=== PATIENT | female | born 1990 | race Caucasian/White ===

== ENCOUNTER 2018-06-21 19:01 | Emergency (ER) | payer BC, MEDICAID ==
[2018-06-21] MEDS: Bacitracin Oint 1 GM U/D Packet TOP ONE (19:23)
[2018-06-21] MEDS: Diphtheria,Pertussis(Acell),Tetanus Vaccine 0.5 ML SDV IM ONE (19:47)
--- NOTE | 2018-06-21 19:52 | EDM.PDOC ---
ED HPI GENERAL MEDICAL PROBLEM - General Chief Complaint: Laceration Stated Complaint: LACERATION ON LEFT THUMB Time Seen by Provider: 06/21/18 19:10 Source of Information: Reports: Patient, Family History Limitations: Reports: No Limitations - History of Present Illness INITIAL COMMENTS - FREE TEXT/NARRATIVE: 28-year-old female with a laceration on the dorsal aspect of her left thumb. 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 She has a transverse laceration over the MP joint of the thumb. She has an inability to extend the thumb. Onset: Sudden Duration: Hour(s): (Within the last hour) Location: Reports: Upper Extremity, Left Associated Symptoms: Reports: No Other Symptoms Left Finger-Thumb Pain Score (Numeric/FACES): 8 - Related Data Allergies Allergy/AdvReac Type Severity Reaction Status Date / Time Sulfa (Sulfonamide Allergy Cannot Verified 06/21/18 19:22 Antibiotics) Remember Home Meds: Home Meds NK [No Known Home Meds] 06/21/18 [History] Social & Family History - Tobacco Use Smoking Status *Q: Current Every Day Smoker Years of Tobacco use: 10 Packs/Tins Daily: 0.5 - Recreational Drug Use Recreational Drug Use: No ED ROS GENERAL - Review of Systems Review Of Systems: See Below Constitutional: Denies: Fever Respiratory: Denies: Shortness of Breath GI/Abdominal: Denies: Nausea, Vomiting Psychiatric: Reports: Anxiety (Very anxious) ED EXAM, SKIN/RASH Exam: See Below Exam Limited By: No Limitations General Appearance: Alert, Anxious Respiratory/Chest: No Respiratory Distress Extremities: Other (Remainder of exam is limited to the left hand. Patient has a 3 cm transverse laceration over the MP joint dorsally of the left thumb. After anesthesia deeper inspection of the wound revealed a complete laceration of the extensor tendon) Course - Vital Signs Last Recorded V/S: Last Vital Signs Temp 97.3 F 06/21/18 19:17 Pulse 100 06/21/18 19:17 Resp 11 L 06/21/18 19:17 BP 115/81 06/21/18 19:17 Pulse Ox 100 06/21/18 19:17 - Orders/Labs/Meds Orders: Active Orders 24 hr Category Date Time Status Vaccines to be Administered [RC] PER UNIT ROUTINE Care 06/21/18 19:42 Active Meds: Medications Discontinued Medications Generic Name Dose Route Start Last Admin Trade Name Anisa PRN Reason Stop Dose Admin Bacitracin 1 dose 06/21/18 19:16 06/21/18 19:23 Bacitracin Oint 1 Gm TOP 06/21/18 19:17 1 dose ONETIME ONE Administration Diphtheria/Tetanus/Acell Pertussis 0.5 ml 06/21/18 19:42 06/21/18 19:47 Adacel IM 06/21/18 19:43 0.5 ml .ONCE ONE Administration Lidocaine HCl 5 ml 06/21/18 19:16 06/21/18 19:23 Xylocaine-Mpf 1% INJECT 06/21/18 19:17 5 ml ONETIME ONE Administration - Re-Assessments/Exams Free Text/Narrative Re-Assessment/Exam: 06/21/18 19:47 The wound was infiltrated with 1% lidocaine, cleansed thoroughly with saline and examined. There is a complete laceration of the extensor tendon. The wound was then closed with 4 4-0 Ethilon sutures, and a bulky dressing with an Dre wrap was applied to immobilize the thumb. I'll have her recheck with orthopedics tomorrow, this tendon will have to be repaired. She'll be placed on cephalexin 500 3 times a day. Also given 10 Vicodin for extra pain control. Departure - Departure Time of Disposition: 20:12 Disposition: Home, Self-Care 01 Condition: Good Clinical Impression: Laceration of thumb with tendon involvement Qualifiers: Encounter type: initial encounter Laterality: left Qualified Code(s): S61.012A - Laceration without foreign body of left thumb without damage to nail, initial encounter - Discharge Information Instructions: Sutured Wound Care Referrals: PCP,None [Primary Care Provider] - Forms: ED Department Discharge Care Plan Goals: Keep the dressing and Dre wrap on the hand until tomorrow when you can be rechecked by orthopedics. Take antibiotics as prescribed and ibuprofen or naproxen will help with pain. Call the orthopedic clinic tomorrow morning, you may want to stay nothing by mouth until after you call in case they want to do a procedure in the morning. - My Orders Last 24 Hours: My Active Orders 06/21/18 19:42 Vaccines to be Administered [RC] PER UNIT ROUTINE - Assessment/Plan Last 24 Hours: My Active Orders 06/21/18 19:42 Vaccines to be Administered [RC] PER UNIT ROUTINE
== END 2018-06-21 20:12 | disposition home or self-care (01) ==
LOC: JP.ED 19:01
DX: S61.012A Laceration without foreign body of left thumb without damage to nail, initial encounter (principal); Z23 Encounter for immunization; F17.210 Nicotine dependence, cigarettes, uncomplicated; Z88.2 Allergy status to sulfonamides; W26.9XXA Contact with unspecified sharp object(s), initial encounter
CPT/HCPCS: 12002; 90471; 90715; 99282; J2001

== ENCOUNTER 2018-06-24 06:37 | Day surgery (SDC) | payer MEDICAID ==
[2018-06-24] MEDS ORDERED: Propofol 200 MG/20 ML SDV ONE ×2 (06:55→08:24)
[2018-06-24] MEDS ORDERED: Midazolam 1 MG/ML 2 ML SDV ONE (06:55)
[2018-06-24] MEDS ORDERED: fentaNYL 100 MCG/2 ML SDV ONE (06:55)
[2018-06-24] MEDS ORDERED: Gentamicin 40 MG/ML 2 ML Vial ONE (06:57)
[2018-06-24] MEDS ORDERED: Bupivacaine 0.5% 30 ML SDV ONE (06:58)
[2018-06-24] MEDS ORDERED: Bacitracin Oint 28.35 GM Tube ONE (06:58)
[2018-06-24] MEDS ORDERED: Lidocaine 1% 50 ML MDV ONE (06:58)
[2018-06-24] MEDS ORDERED: Lactated Ringers 1,000 ML IV SCH (07:00)
[2018-06-24] MEDS ORDERED: Nozin Nasal Sanitizer NASBOTH ONE (07:18)
[2018-06-24] MEDS ORDERED: ceFAZolin 1 GM in Premix Bag 1 BAG IV ONE (07:30)
[2018-06-24] MEDS ORDERED: ceFAZolin 1 GM in Sodium Chloride 0.9% 50 ML IV ONE (07:30)
[2018-06-24] MEDS ORDERED: Lidocaine 1% PF 2 ML SDV ONE (07:45)
[2018-06-24] MEDS ORDERED: Lidocaine 0.5% 50 ML SDV ONE (07:45)
[2018-06-24] MEDS ORDERED: Acetaminophen/HYDROcodone 325-5 MG Tab PO ONE (09:11)
--- NOTE | 2018-06-24 12:37 | PCM.OPNOTE ---
- General Post-Op/Procedure Note Date of Surgery/Procedure: 06/24/18 Operative Procedure(s): Repair extensor pollicis longus and brevis left thumb. Findings: Complete laceration of extensor pollicis longus and near complete laceration of extensor polllicis brevis Pre Op Diagnosis: Laceration extensor tendon(s) left thumb Post-Op Diagnosis: Laceration of extensor pollicis longus and brevis left thumb Anesthesia Technique: Moderate Sedation, Other (see below) ([place] block) Primary Surgeon: Sujit Conn EBL in mLs: 0 Complications: None Condition: Good Free Text/Narrative:: Intake & Output 06/23/18 06/24/18 06/24/18 22:59 06:59 14:59 Intake Total 246 Balance 246 indications: Radha is a 28-year-old female who sustained a laceration over the dorsum of her left palm with a box toe cementer. Examination by the emergency room physician at the time revealed a complete laceration of the extensor tendon of the thumb. She now presents for repair. Risks, benefits and potential complications were discussed. Procedure: After adequate anesthesia was obtained the right hand was scrubbed and then prepped and draped in a sterile fashion. Previous skin sutures from the emergency department were removed. Dissection carried down to the extensor mcdowell. Laceration of the extensor tendon and mcdowell was noted. The laceration of the skin was extended slightly in a Z fashion and the proximal and distal portions of the tendon were exposed. No significant retraction had occurred. The wound was irrigated. Laceration was down into the bone. The edges of the tendon laceration were freshened. A 3-0 nylon was used to repair the extensor pollicis longus using a Jesse locking suture. The laceration extended through the extensor mcdowell and included the majority of the extensor pollicis brevis as well. A second 3-0 nylon locking [place] suture was used for the pollicis brevis. Laceration was then oversewn in a simple running fashion with 3-0 nylon. Excellent approximation of the tendon edges was obtained. Wound was irrigated once again. Skin was then closed with 3-0 nylon in a combination of simple sutures and a single horizontal mattress suture to better eversion of the skin edge. Thumb was then injected with 0.5% Marcaine. A sterile dressing was then applied under a well-padded plaster splint with the thumb in slight extension. Patient tolerated the procedure very well there were no complications. She was taken from the operating room in stable condition
== END 2018-06-24 10:10 | disposition home or self-care (01) ==
LOC: JP.SDS 06:37
PROVIDERS: ATTEND Specialist
DX: S56.322A Laceration of extensor or abductor muscles, fascia and tendons of left thumb at forearm level, initial encounter (principal); F17.210 Nicotine dependence, cigarettes, uncomplicated; Z88.2 Allergy status to sulfonamides; W26.0XXA Contact with knife, initial encounter
CPT/HCPCS: 26418; 81025; A9270; J0690; J2001; J2250; J2704; J3010; J3490; J7120; J1580

== ENCOUNTER 2018-07-11 11:14 | Emergency (ER) | payer MEDICAID ==
--- NOTE | 2018-07-11 13:53 | EDM.PDOC ---
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) Hand function intact No other injuries - Related Data Allergies Allergy/AdvReac Type Severity Reaction Status Date / Time Sulfa (Sulfonamide Allergy Cannot Verified 07/11/18 11:54 Antibiotics) Remember Home Meds: Home Meds Ibuprofen 200 mg PO ASDIRECTED PRN 07/02/18 [History] Past Medical History Musculoskeletal History: Reports: Other (See Below) Other Musculoskeletal History: left thumb extensor tendon laceration fixation 06/24/18 - Infectious Disease History Infectious Disease History: Reports: Chicken Pox - Past Surgical History Musculoskeletal Surgical History: Reports: None Dermatological Surgical History: Reports: None Social & Family History - Tobacco Use Smoking Status *Q: Current Every Day Smoker Years of Tobacco use: 9 Packs/Tins Daily: 0.5 - Caffeine Use Caffeine Use: Reports: Coffee Review of Systems - Review of Systems Review Of Systems: See Below Constitutional: Reports: No Symptoms Eyes: Reports: No Symptoms Ears: Reports: No Symptoms Nose: Reports: No Symptoms Mouth/Throat: Reports: No Symptoms Respiratory: Reports: No Symptoms Cardiovascular: Reports: No Symptoms GI/Abdominal: Reports: No Symptoms Genitourinary: Reports: No Symptoms Musculoskeletal: Reports: Hand Pain Skin: Reports: No Symptoms Neurological: Reports: No Symptoms Psychiatric: Reports: No Symptoms ED EXAM, GENERAL - Physical Exam Exam: See Below Exam Limited By: No Limitations General Appearance: Alert, No Apparent Distress Nose: Normal Inspection Throat/Mouth: Normal Inspection Head: Atraumatic, Normocephalic Neck: Normal Inspection Respiratory/Chest: No Respiratory Distress, Lungs Clear Cardiovascular: Regular Rate, Rhythm GI/Abdominal: Normal Bowel Sounds, Soft, Non-Tender Extremities: Normal Inspection, Other (mild diffuse tenderness left forearm, no deformity ) Neurological: Alert, Oriented Psychiatric: Normal Affect, Normal Mood Skin Exam: Warm, Dry Course - Vital Signs Last Recorded V/S: Last Vital Signs Temp 36.9 C 07/11/18 12:01 Pulse 88 07/11/18 12:01 Resp 14 07/11/18 12:01 BP 149/90 H 07/11/18 12:01 Pulse Ox 95 07/11/18 12:01 - Re-Assessments/Exams Free Text/Narrative Re-Assessment/Exam: 28 presents with diffuse left forearm injury after fall Diffuse tenderness No deformity Not consistent with fracture Surgical site looks good Cleaned up wound and offered re-assurance 07/12/18 19:13 Departure - Departure Time of Disposition: 13:52 Disposition: Home, Self-Care 01 Clinical Impression: Left wrist pain - Discharge Information *PRESCRIPTION DRUG MONITORING PROGRAM REVIEWED*: No *COPY OF PRESCRIPTION DRUG MONITORING REPORT IN PATIENT JEREMY: No Instructions: Wrist Pain, Adult, [id number] Referrals: PCP,None [Primary Care Provider] - Forms: ED Department Discharge Additional Instructions: Please follow up with your orthopedic surgeon as planned Tylenol or ibuprofen for pain
== END 2018-07-11 14:01 | disposition home or self-care (01) ==
LOC: JP.ED 11:14
DX: M25.532 Pain in left wrist (principal); F17.210 Nicotine dependence, cigarettes, uncomplicated; Z88.2 Allergy status to sulfonamides; W19.XXXA Unspecified fall, initial encounter
CPT/HCPCS: 99282

== ENCOUNTER 2020-07-15 10:37 | Emergency (ER) | payer MEDICAID ==
--- NOTE | 2020-07-15 11:48 | EDM.PDOCBH ---
ED HPI GENERAL MEDICAL PROBLEM - General Chief Complaint: Behavioral/Psych Stated Complaint: ANXIETY - EVAL Time Seen by Provider: 07/15/20 11:29 Source of Information: Reports: Patient, Family (after obtaining patient's permission this physician d/w mother who brought her to ER) History Limitations: Reports: No Limitations - History of Present Illness INITIAL COMMENTS - FREE TEXT/NARRATIVE: Patient presents to the ER today due to MH/drug abuse concerns. She states that she has been staying with her mother the last several days (timeframe is not exact but she thinks 3 days), she does report that just prior to going to her mom's house she used Methamphetamine & Heroin (smoked both) although she states she's not sure how she got the heroin & denies using prior to this. She does admit to using crack cocaine several months ago (smoked). She states that she is anxious/depressed, having a hard time concentrating, feeling overwhelmed with what to do with her life. She states she is at a point that she does not want to go on any longer--she demonstrates a passive suicidal ideation but then states that she would cut/stab herself with something sharp. She does report that she attempted suicide in the past--tried to hang herself about 3 years ago but her boyfriend found her & got her down; she states that until yesterday when talking with [facility] she has never told anyone/reported this incident. She repeatedly states she does not know what to do, feeling overwhelmed with current situation to include trying to get a place to stay/job. She feels like no one wants to help her but then she does verbalized that her mom is concerned/cares as she has given her a place to stay and helped her get ahold of TeleHealth/Psych yesterday. Patient does state that yesterday's TeleHealth/Psychiatry visit did result in medication being prescribed (she does not know what) and that her plan was to get medication today. She is unclear about any discussed safety plan with psychiatry yesterday as she does not remember--she states she is having trouble remembering stuff. In a seperate area I discussed situation with patient's mother after obtaining patient permission. Mom states she is unsure what to do to help her daughter, she's trying and knows that alot of stuff is related to drugs/coming off drugs. Mom describes patient has labile in nature, has been yelling & cursing last couple of days, very anxious. Mom states that patient would not allow her to be present yesterday during TeleHealth/Psychiatry visit so she was unaware of medication being prescribed until today. Additionally, patient told RFID DEVELOPER about suicide attempt and this was the first time mom knew anything per her report. Mom states that patient told her this morning that she could not go on, just wanted to quit & when mom ask her further patient told her that she just wanted to . PMH--anxiety/depression, polysubstance abuse (crack cocaine, methamphetamine, herorin--all smoked) Meds--none currently; reports something prescribed yesterday but has not started/picked up at pharmacy Allergies--Sulfa Tob--<1/2 ppd EtOH--not in last 3-4 months, states prior to that "way too much" Drugs--meth, heroin, crack LMP--10 July - Related Data Allergies Allergy/AdvReac Type Severity Reaction Status Date / Time Sulfa (Sulfonamide Allergy Cannot Verified 07/15/20 10:52 Antibiotics) Remember Home Meds: Home Meds hydrOXYzine HCL [Hydroxyzine HCl] 25 mg PO ASDIRECTED 07/15/20 [History] lamoTRIgine [Lamotrigine] 25 mg PO ASDIRECTED 07/15/20 [History] traZODone 100 mg PO BEDTIME 07/15/20 [History] Past Medical History HEENT History: Reports: None Cardiovascular History: Reports: None Respiratory History: Reports: None Gastrointestinal History: Reports: None Genitourinary History: Reports: None TAFFY PULLER History: Reports: None Musculoskeletal History: Reports: Other (See Below) Other Musculoskeletal History: left thumb extensor tendon laceration fixation 06/24/18 Neurological History: Reports: None Psychiatric History: Reports: Addiction, Anxiety, Suicide Attempt, Suicidal Ideation Endocrine/Metabolic History: Reports: None Hematologic History: Reports: None Immunologic History: Reports: None Oncologic (Cancer) History: Reports: None Dermatologic History: Reports: None - Infectious Disease History Infectious Disease History: Reports: Chicken Pox - Past Surgical History Head Surgeries/Procedures: Reports: None Musculoskeletal Surgical History: Reports: None Dermatological Surgical History: Reports: None Social & Family History - Tobacco Use Tobacco Use Status *Q: Current Every Day Tobacco User Years of Tobacco use: 21 Packs/Tins Daily: 0.5 - Caffeine Use Caffeine Use: Reports: Coffee - Recreational Drug Use Recreational Drug Use: Yes Recreational Drug Type: Reports: Heroin, Methamphetamine Recreational Drug Use Frequency: Daily ED ROS GENERAL - Review of Systems Review Of Systems: Comprehensive ROS is negative, except as noted in HPI. Constitutional: Reports: No Symptoms HEENT: Reports: No Symptoms Respiratory: Reports: No Symptoms Cardiovascular: Reports: No Symptoms Endocrine: Reports: No Symptoms GI/Abdominal: Reports: No Symptoms : Reports: No Symptoms Musculoskeletal: Reports: No Symptoms Skin: Reports: No Symptoms Neurological: Reports: No Symptoms Psychiatric: Reports: Agitation, Anxiety, Depression, Mood Lability, Suicidal Ideation (passive in nature initially but then did states she would use a sharp object to stab herself) Hematologic/Lymphatic: Reports: No Symptoms Immunologic: Reports: No Symptoms ED EXAM, BEHAVIORAL HEALTH - Physical Exam Exam: See Below Exam Limited By: No Limitations General Appearance: Alert, Anxious Eye Exam: Bilateral Eye: EOMI, Normal Inspection, PERRL Ears: Normal External Exam Nose: Normal Inspection Throat/Mouth: Normal Inspection, Normal Oropharynx Head: Atraumatic, Normocephalic Neck: Normal Inspection, Supple, Non-Tender, Full Range of Motion Respiratory/Chest: No Respiratory Distress, Lungs Clear, Normal Breath Sounds, No Accessory Muscle Use Cardiovascular: Normal Peripheral Pulses, Regular Rate, Rhythm (mild tachycardia noted on vitals--HR 102), No Edema, No Murmur GI/Abdominal: Normal Bowel Sounds, Soft, Non-Tender, No Distention (Female) Exam: Deferred Rectal (Female) Exam: Deferred Back Exam: Normal Inspection Extremities: Normal Inspection, Normal Range of Motion, No Pedal Edema, Normal Capillary Refill Neurological: Alert, Normal Cognition, Normal Gait, No Motor/Sensory Deficits, Oriented x 3 Psychiatric: Alert, Flat Affect, Tearful, Poor Eye Contact, Suicidal Thoughts Skin Exam: Warm, Dry, Normal color COURSE, BEHAVIORAL HEALTH COMP - Course Vital Signs: Last Vital Signs Temp 98.1 F 07/15/20 10:44 Pulse 104 H 07/15/20 15:30 Resp 20 07/15/20 15:30 BP 121/77 07/15/20 15:30 Pulse Ox 100 07/15/20 15:30 Orders, Labs, Meds: Active Orders 24 hr Category Date Time Status Notify Provider Vital Signs [RC] ASDIRECTED Care 07/15/20 11:31 Active Up ad Meryl [RC] ASDIRECTED Care 07/15/20 11:29 Active Vital Signs [RC] PER UNIT ROUTINE Care 07/15/20 11:29 Active Consult to Case Management/Electrical Unit Rebuilder [CONS] Cons 07/15/20 11:29 Active Routine Regular Diet [DIET] Diet 07/15/20 Lunch Active LORazepam [Ativan] Med 07/15/20 15:32 Active 1 mg PO Q8H PRN ED Alcohol and Substance Abuse Reflex [OM.PC] Click to Oth 07/15/20 11:29 Ordered Edit Medication Orders Lorazepam (Lorazepam 1 Mg Tab) 1 mg PO Q8H PRN PRN Reason: Agitation Last Admin: 07/15/20 15:40 Dose: 1 mg Documented by: PREILOR Laboratory Tests 07/15/20 07/15/20 07/15/20 Range/Units 11:29 11:29 11:29 WBC 13.1 H (4.5-11.0) K/uL RBC 5.46 (3.30-5.50) M/uL Hgb 14.4 (12.0-15.0) g/dL Hct 43.4 (36.0-48.0) % MCV 80 (80-98) fL MCH 26 L (27-31) pg MCHC 33 (32-36) % Plt Count 271 (150-400) K/uL Neut % (Auto) 69 H (36-66) % Lymph % (Auto) 25 (24-44) % [place] % (Auto) 5 (2-6) % Eos % (Auto) 1 L (2-4) % Baso % (Auto) 0 (0-1) % Sodium 142 (140-148) mmol/L Potassium 4.4 (3.6-5.2) mmol/L Chloride 107 (100-108) mmol/L Carbon Dioxide 27 (21-32) mmol/L Anion Gap 8.3 (5.0-14.0) mmol/L BUN 9 (7-18) mg/dL Creatinine 0.7 (0.6-1.0) mg/dL Est Cr Clr Drug Dosing 99.34 mL/min Estimated GFR (MDRD) > 60 (>60) Glucose 100 (74-106) mg/dL Calcium 8.9 (8.5-10.1) mg/dL Free T4 0.84 (0.76-1.46) ng/dL Urine Color (YELLOW) Urine Appearance (CLEAR) Urine pH (5.0-8.0) Ur Specific [place] (1.008-1.030) Urine Protein (NEGATIVE) mg/dL Urine Glucose (UA) (NEGATIVE) mg/dL Urine Ketones (NEGATIVE) mg/dL Urine Occult Blood (NEGATIVE) Urine Nitrite (NEGATIVE) Urine Bilirubin (NEGATIVE) Urine Urobilinogen (0.2-1.0) EU/dL Ur Leukocyte Esterase (NEGATIVE) Urine RBC (0-5) Urine WBC (0-5) Ur Epithelial Cells Amorphous Sediment Urine Bacteria Urine Mucus Urine HCG, Qual Urine Opiates Screen (NEGATIVE) Ur Oxycodone Screen (NEGATIVE) Urine Methadone Screen (NEGATIVE) Ur Propoxyphene Screen (NEGATIVE) Ur Barbiturates Screen (NEGATIVE) Ur Tricyclics Screen (NEGATIVE) Ur Phencyclidine Scrn (NEGATIVE) Ur Amphetamine Screen (NEGATIVE) U Methamphetamines Scrn (NEGATIVE) Urine MDMA Screen (NEGATIVE) U Benzodiazepines Scrn (NEGATIVE) U Cocaine Metab Screen (NEGATIVE) U Marijuana (THC) Screen (NEGATIVE) Ethyl Alcohol < 3 mg/dL 07/15/20 07/15/20 07/15/20 Range/Units 11:38 11:38 11:47 WBC (4.5-11.0) K/uL RBC (3.30-5.50) M/uL Hgb (12.0-15.0) g/dL Hct (36.0-48.0) % MCV (80-98) fL MCH (27-31) pg MCHC (32-36) % Plt Count (150-400) K/uL Neut % (Auto) (36-66) % Lymph % (Auto) (24-44) % [place] % (Auto) (2-6) % Eos % (Auto) (2-4) % Baso % (Auto) (0-1) % Sodium (140-148) mmol/L Potassium (3.6-5.2) mmol/L Chloride (100-108) mmol/L Carbon Dioxide (21-32) mmol/L Anion Gap (5.0-14.0) mmol/L BUN (7-18) mg/dL Creatinine (0.6-1.0) mg/dL Est Cr Clr Drug Dosing mL/min Estimated GFR (MDRD) (>60) Glucose (74-106) mg/dL Calcium (8.5-10.1) mg/dL Free T4 (0.76-1.46) ng/dL Urine Color Yellow (YELLOW) Urine Appearance Clear (CLEAR) Urine pH 7.5 (5.0-8.0) Ur Specific [place] 1.025 (1.008-1.030) Urine Protein Negative (NEGATIVE) mg/dL Urine Glucose (UA) Negative (NEGATIVE) mg/dL Urine Ketones Negative (NEGATIVE) mg/dL Urine Occult Blood Negative (NEGATIVE) Urine Nitrite Negative (NEGATIVE) Urine Bilirubin Negative (NEGATIVE) Urine Urobilinogen 0.2 (0.2-1.0) EU/dL Ur Leukocyte Esterase Negative (NEGATIVE) Urine RBC Not seen (0-5) Urine WBC 0-5 (0-5) Ur Epithelial Cells Moderate Amorphous Sediment Not seen Urine Bacteria Few Urine Mucus Moderate Urine HCG, Qual Negative Urine Opiates Screen Negative (NEGATIVE) Ur Oxycodone Screen Negative (NEGATIVE) Urine Methadone Screen Negative (NEGATIVE) Ur Propoxyphene Screen Negative (NEGATIVE) Ur Barbiturates Screen Negative (NEGATIVE) Ur Tricyclics Screen Negative (NEGATIVE) Ur Phencyclidine Scrn Negative (NEGATIVE) Ur Amphetamine Screen Presumptive positive H (NEGATIVE) U Methamphetamines Scrn Presumptive positive H (NEGATIVE) Urine MDMA Screen Negative (NEGATIVE) U Benzodiazepines Scrn Negative (NEGATIVE) U Cocaine Metab Screen Negative (NEGATIVE) U Marijuana (THC) Screen Negative (NEGATIVE) Ethyl Alcohol mg/dL Medications Generic Name Dose Route Start Last Admin Trade Name Freq PRN Reason Stop Dose Admin Lorazepam 1 mg 07/15/20 15:32 07/15/20 15:40 Lorazepam 1 Mg Tab PO 1 mg Q8H PRN Administration Agitation Discontinued Medications Generic Name Dose Route Start Last Admin Trade Name Freq PRN Reason Stop Dose Admin Nicotine 21 mg 07/15/20 15:32 07/15/20 15:43 Nicotine 21 Mg/24 Hr Patch TRDERM 07/15/20 15:33 21 mg ONETIME ONE Administration 1214--noted for UDS + for methamphetamine as would be expected based on patient polysub abuse history; T-4 & BMP pending at this time. Re-Assessment/Re-Exam: 1258--mobile crisis is here to evaluate further 1445--in room to examine extremities for concerns about report self-injury to mobile crisis; noted to have scratch palencia on her right upper/outer thigh not new/superficial in nature, bilateral FA with scab areas of reported cutting behavior and cigarette har[place]--all healing no drainage/discharge or concerns of localized skin infection noted 1530--d/w patient recommendation for placement due to today's ER evaluation for further psychiatric care. she verbalized understanding/agreement at this time. asking to go smoke, d/w her unable to allow this but will provide nicoderm patch and prn ativan po for anxiety symptoms. all questions at this time answered as able to patient and mom at bedside 1800--case d/w Dr Rouse, ER at change of shift/transfer of care. At this time patient has been accepted at [facility] unit. Transfer paperwork completed. awaiting EMS at this time Re-Assessment/Re-Exam Date: 07/15/20 (mobile crisis recommendation is for placement--dual dx (drug abuse/depression-anxiety)) Departure - Departure Time of Disposition: 18:03 Disposition: DC/Tfer to Psych Hosp/Unit 65 Clinical Impression: Polysubstance abuse, Methamphetamine abuse, Depression, Passive suicidal ideations - Discharge Information *PRESCRIPTION DRUG MONITORING PROGRAM REVIEWED*: Not Applicable *COPY OF PRESCRIPTION DRUG MONITORING REPORT IN PATIENT JEREMY: Not Applicable Referrals: PCP,None [Primary Care Provider] - Forms: ED Department Discharge Sepsis Event Note (ED) - Evaluation Sepsis Screening Result: No Definite Risk - Focused Exam Vital Signs: Vital Signs Temp Pulse Resp BP Pulse Ox 07/15/20 15:30 104 H 20 121/77 100 07/15/20 10:44 98.1 F 102 H 24 H 135/84 100 - My Orders Last 24 Hours: My Active Orders 07/15/20 11:29 Up ad Meryl [RC] ASDIRECTED Vital Signs [RC] PER UNIT ROUTINE Consult to Case Management/Electrical Unit Rebuilder [CONS] Routine ED Alcohol and Substance Abuse Reflex [OM.PC] Click to Edit 07/15/20 11:31 Notify Provider Vital Signs [RC] ASDIRECTED 07/15/20 Lunch Regular Diet [DIET] 07/15/20 15:32 LORazepam [Ativan] 1 mg PO Q8H PRN - Assessment/Plan Last 24 Hours: My Active Orders 07/15/20 11:29 Up ad Meryl [RC] ASDIRECTED Vital Signs [RC] PER UNIT ROUTINE Consult to Case Management/Electrical Unit Rebuilder [CONS] Routine ED Alcohol and Substance Abuse Reflex [OM.PC] Click to Edit 07/15/20 11:31 Notify Provider Vital Signs [RC] ASDIRECTED 07/15/20 Lunch Regular Diet [DIET] 07/15/20 15:32 LORazepam [Ativan] 1 mg PO Q8H PRN
[2020-07-15] MEDS ORDERED: LORazepam 1 MG Tab PO PRN (15:32)
[2020-07-15] MEDS ORDERED: Nicotine 21 MG/24 Hr Patch TRDERM ONE (15:32)
== END 2020-07-15 20:42 ==
LOC: JP.ED 10:37
DX: F32.9 Major depressive disorder, single episode, unspecified (principal); F15.10 Other stimulant abuse, uncomplicated; R00.0 Tachycardia, unspecified; Z72.0 Tobacco use; Z88.2 Allergy status to sulfonamides
CPT/HCPCS: 36415; 80048; 80305-QW; 80307; 81001; 81025; 84439; 85025; 99284; 99285; A9270-GY